=== PATIENT | female | born 1950 | race Caucasian/White ===

== ENCOUNTER → 2023-12-09 09:00 | Outpatient (REF) | payer MEDICARE, OTHER, SELFPAY ==
[2023-12-09 09:24] LABS: % Basophils 1.2 % (0-2); % Eosinophils 4.4 % (0-6); % Immature Granulocytes 0.4 % (0-0.5); % Lymphocytes 16.2 % (20.5-51.1); % Neutrophils 70.8 % (42.2-75.2); Absolute Basophils 0.1 10^3/uL (0-0.2); Absolute Eosinophils 0.3 10^3/uL (0-0.7); Absolute Lymphocytes 0.9 10^3/uL (1.2-3.4); Absolute Monocytes 0.4 10^3/uL (0.1-0.6); Hematocrit 41.5 % (37.0-47.0); Hemoglobin 14.1 g/dL (12.0-16.0); Mean Corpuscular Hgb 30.3 pg (27.0-31.0); Mean Corpuscular Volume 89.2 fL (81.0-99.0); Mean Platelet Volume 10.2 fL (7.4-10.4); Nucleated Red Blood Cells % 0 %; Platelet Count 287 10^3/uL (130-400); Red Blood Cell Count 4.65 10^6/uL (4.20-5.40); Red Cell Dist. Width 13.7 % (11.5-14.5); White Blood Cell Count 5.7 10^3/uL (4.8-10.8)
[2023-12-09 09:34] LABS: INR 1.04; PT 13.6 Sec (11.4-14.6)
[2023-12-09 09:56] VITALS: BP 172/96; BP_SYST 88
[2023-12-09] MEDS: ATIVAN 0.5 MG IV (10:15)
[2023-12-09] MEDS: NSS (PRESERVATIVE FREE) 0.25 ML IV (10:15)
[2023-12-09 11:59] VITALS: BP 179/95
--- NOTE | 2023-12-14 08:41 | PTCARENOTE ---
nikhil Rn- patient called to discuss pain from bone marrow biopsy site and surrounding tissues. rates pain 4/10 at rest and with movement. patient denies redness, swelling, or drainage from site. discussed symptoms with RUPERTO Brown. no changes to
care at this time. patient instructed to call if pain does not subside within 1 week.
== END ==
LOC: RADI 09:00
PROVIDERS: ATTENDING PHYSICIAN Internal Medicine Hematology & Oncology; FAMILY PHYSICIAN Internal Medicine Geriatric Medicine
DX: D47.2 Monoclonal gammopathy (principal); D68.8 Other specified coagulation defects
CPT/HCPCS: 88305; 88311; 88312; 36415; 38222; 77012; 85025; 85610; 88313; 88341; 88342

== ENCOUNTER → 2025-01-05 12:12 | Outpatient (REF) | payer MEDICARE, OTHER, SELFPAY ==
[2025-01-05 16:01] LABS: Blood Urea Nitrogen 11 mg/dl (7-17); Calcium 9.7 mg/dl (8.4-10.2); Carbon Dioxide 23 mmol/L (22-30); Chloride 110 mmol/L (98-107); Glucose 92 mg/dl (70-99); Potassium 4.2 mmol/L (3.5-5.1); Sodium 141 mmol/L (135-145); eGFR > 60.00
== END ==
LOC: RAD 12:12
PROVIDERS: ATTENDING PHYSICIAN Family Medicine
DX: R22.0 Localized swelling, mass and lump, head (principal); K91.840 Postprocedural hemorrhage of a digestive system organ or structure following a digestive system procedure; Z98.818 Other dental procedure status; R42 Dizziness and giddiness; Z01.812 Encounter for preprocedural laboratory examination
CPT/HCPCS: 36415; 80048

== ENCOUNTER → 2025-01-06 09:43 | Outpatient (REF) | payer MEDICARE, OTHER, SELFPAY | LOC: RAD 09:43 | PROVIDERS: ATTENDING PHYSICIAN Family Medicine | DX: R22.0 Localized swelling, mass and lump, head (principal); K91.840 Postprocedural hemorrhage of a digestive system organ or structure following a digestive system procedure; Z98.818 Other dental procedure status; R42 Dizziness and giddiness | CPT/HCPCS: 70492; Q9967 ==

== ENCOUNTER → 2025-02-28 06:54 | Outpatient (REF) | payer MEDICARE, OTHER, SELFPAY | LOC: RAD 06:54 | PROVIDERS: ATTENDING PHYSICIAN Internal Medicine | DX: I65.22 Occlusion and stenosis of left carotid artery (principal); I77.1 Stricture of artery | CPT/HCPCS: 93880; 93931 ==

== ENCOUNTER → 2025-03-08 15:25 | Outpatient (REF) | payer MEDICARE, OTHER, SELFPAY | LOC: WDC 15:25 | PROVIDERS: ATTENDING PHYSICIAN Obstetrics & Gynecology Gynecology; FAMILY PHYSICIAN Internal Medicine | DX: Z12.31 Encounter for screening mammogram for malignant neoplasm of breast (principal) | CPT/HCPCS: 77063; 77067 ==

== ENCOUNTER → 2025-06-01 13:26 | Outpatient (REF) | payer MEDICARE, OTHER, SELFPAY | LOC: RAD 13:26 | PROVIDERS: ATTENDING PHYSICIAN Internal Medicine Rheumatology; FAMILY PHYSICIAN Internal Medicine; REFERRING PHYSICIAN Obstetrics & Gynecology Gynecology | DX: M81.0 Age-related osteoporosis without current pathological fracture (principal) | CPT/HCPCS: 77080 ==